=== PATIENT | male | born 1980 | race Caucasian/White ===

== ENCOUNTER 2017-11-02 | Emergency (ER) | payer BC ==
[~2017-11-02] VITALS: Ht 180.3 cm; Wt 120.0 kg
[~2017-11-02] MED LIST: DICL75 PO
[2017-11-02 00:04] VITALS: BP 158/97; PULSE 105; RESP 24; TEMP 98.8; O2SAT 100
[2017-11-02] MEDS ORDERED: ALBUAER3 INH (00:18)
[2017-11-02] MEDS ORDERED: LISI10TA3 PO (00:18)
[2017-11-02] MEDS ORDERED: METH4PAK PO (00:18)
[2017-11-02] MEDS ORDERED: predniSONE 20 MG TAB PO ONE (00:30)
--- NOTE | 2017-11-02 00:32 | PD ---
HPI Chief Complaint: Respiratory Symptoms Time Seen by Provider: 00:27 Travel History International Travel<30 days: No Contact w/Intl Traveler<30days: No Traveled to known affect area: No History of Present Illness HPI 37yo M with PMH of asthma here with c/o cough for 3 days. Also with nasal congestion and cold like symptoms. Pt has been feeling sob for the last 3 hours and states it feels like his asthma. Denies any fever, chest pain, n/v, abdominal pain, history of PE/DVT, hemoptysis, focal weakness or numbness. PFSH Past Medical History Asthma: Yes Diminished Hearing: No Hypertension: Yes Tetanus Vaccination: Unknown Influenza Vaccination: No Past Surgical History Tonsillectomy: Yes Social History Alcohol Use: Yes (occas) Tobacco Use: No Substance Use: No Allergies-Medications (Allergen,Severity, Reaction): Coded Allergies: No Known Allergies (Unverified Adverse Reaction, Unknown, 11/02/17) Reported Meds & Prescriptions Reported Meds & Active Scripts Active Reported Lisinopril 10 Mg Tab 10 Mg PO DAILY Proair Hfa 8.5 GM Inh (Albuterol Sulfate) 90 Mcg/Act Aer 2 Puff INH Q4-6H PRN 108 mcg/actuation Methylprednisolone Dosepak (Methylprednisolone) 4 Dspk 4 Mg PO DIRECTED Per Pharmacist Direction Review of Systems Except as stated in HPI: all other systems reviewed are Neg Physical Exam Narrative GENERAL: 37yo M in mild distress. SKIN: Focused skin assessment warm/dry. HEAD: Atraumatic. Normocephalic. EYES: Pupils equal and round. No scleral icterus. No injection or drainage. ENT: No nasal bleeding or discharge. Mucous membranes pink and moist. NECK: Trachea midline. No JVD. CARDIOVASCULAR: Regular rate and rhythm. No murmur appreciated. RESPIRATORY: +Coughing. Mild end inspiratory wheeze. Breath sounds equal bilaterally. Saturating at 100% on RA. GASTROINTESTINAL: Abdomen soft, non-tender, nondistended. MUSCULOSKELETAL: No obvious deformities. No clubbing. No cyanosis. No edema. NEUROLOGICAL: Awake and alert. No obvious cranial nerve deficits. Motor grossly within normal limits. Normal speech. PSYCHIATRIC: Appropriate mood and affect; insight and judgment normal. Data Data Last Documented VS Vital Signs Date Time Temp Pulse Resp B/P (MAP) Pulse Ox O2 Delivery O2 Flow Rate FiO2 11/02/17 01:43 90 20 150/85 (106) 100 Room Air 11/02/17 00:04 98.8 Orders Orders Chest, Single Ap (11/02/17 00:29) Albuterol-Ipratropium Neb (Duoneb Neb) (11/02/17 00:30) Prednisone (Deltasone) (11/02/17 00:30) MDM Medical Decision Making Medical Screen Exam Complete: Yes Emergency Medical Condition: Yes Differential Diagnosis URI vs. bronchitis vs. pneumonia vs. asthma exacerbation Narrative Course 37yo M with PMH of asthma here with sob. Pt has been coughing for a few days as well. CXR showed no acute disease. Pt given prednisone 60mg PO and duonebs x3. Pt reevaluated at bedside and feels much better. No longer sob and wants to go home. Pt has a medrol dose pack that has not and can take it. Return precautions given. Diagnosis Primary Impression: Asthma exacerbation Qualified Codes: J45.901 - Unspecified asthma with (acute) exacerbation Patient Instructions: General Instructions Departure Forms: Tests/Procedures Additional Instructions: Please follow up with your primary care physician in 2-3 days. Return to the ED if symptoms worsen. Med/Other Pt SpecificInfo: Prescription(s) given Scripts Albuterol 18 GM Inh (Ventolin Hfa 18 GM Inh) 90 Mcg/Act Aer 2 PUFF INH Q4H Y for SHORTNESS OF BREATH, #1 INHALER 0 Refills Prov: Jesusita Lr DO 11/02/17 Disposition: 01 DISCHARGE HOME Condition: Stable Jesusita Lr DO Nov 02, 2017 00:32
[2017-11-02] MEDS: RESP: ALBUTEROL 2.5 MG/IPRATROPIUM 0.5 MG NEB (SCH) INH ×2 (00:56→00:57)
--- NOTE | 2017-11-02 01:05 | RADRPT ---
EXAM DATE/TIME: 11/02/2017 00:50 [facility] COMPARISON: No previous studies available for comparison. INDICATIONS : Shortness of breath. MEDICAL HISTORY : Asthma SURGICAL HISTORY : None. ENCOUNTER: Initial ACUITY: 1 day PAIN SCORE: 0/10 LOCATION: Bilateral chest FINDINGS: A single view of the chest demonstrates the lungs to be symmetrically aerated without evidence of mas s, infiltrate or effusion. Low lung volumes. The cardiomediastinal contours are unremarkable. [place] us structures are intact. CONCLUSION: No acute disease. Winston Abbasi Jr., MD on November 02, 2017 at 1:02 Board Certified Radiologist. This report was verified electronically.
[2017-11-02 01:43] VITALS: BP 150/85; PULSE 90; RESP 20; O2SAT 100
[2017-11-02] MEDS ORDERED: VENTAER INH (02:35)
== END 2017-11-02 02:53 | disposition home or self-care (01) ==
LOC: NEPC
DX: J45.901 Unspecified asthma with (acute) exacerbation (principal); I10 Essential (primary) hypertension; Z79.899 Other long term (current) drug therapy
CPT/HCPCS: 71045; 94640; 94664; 99284; J7512